=== PATIENT | male | born 1985 | race Hispanic/Latino ===

== ENCOUNTER 2019-02-21 18:06 | Inpatient (IN) | payer OTHER ==
[2019-02-21] MEDS ORDERED: Lidocaine 1% (PF) 30 ML VIAL ONE (18:34)
[2019-02-21 18:41] LABS: Bilirubin Negative (Negative); Blood, Urine Negative (Negative); Clarity Clear (Clear); Glucose, Urine (Dipstick) Normal (Negative); Leukocyte Negative Leu/uL (Negative); Nitrite Negative (Negative); Protein, Urine (Dipstick) Negative (Neg-Trace); Urobilinogen Normal mg/dL (Less than 2)
--- NOTE | 2019-02-21 18:42 | RAD ---
Portable chest: HISTORY: Chest pain COMPARISON: none FINDINGS: Lung mora are clear. Heart and mediastinum appear unremarkable. Vascularity is normal. Visualized osseous structures unremarkable. IMPRESSION: No acute finding
[2019-02-21 18:43] LABS: #Basophils 0.1 thou/uL (0.0-0.2); #Eosinphils 0.1 thou/uL (0.0-0.7); #Lymphocytes 1.6 thou/uL (1.20-3.40); #Monocytes 0.6 thou/uL (0.11-0.59); #Neutrophils 4.6 thou/uL (1.40-6.50); %Basophils 1.1 % (0.0-1.0); %Eosinophils 1.7 % (0.0-10.0); %Lymphocytes 23.3 % (21.0-51.0); %Monocytes 8.3 % (0.0-10.0); %Neutrophils 65.7 % (42.0-75.0); Hemoglobin 13.9 g/dL (14.0-18.0); Mean Corpuscular HGB CONC 35.2 g/dL (32.0-36.0); Mean Corpuscular Hemoglobin 30.6 pg (27.0-31.0); Mean Corpuscular Volume 86.9 fL (78.0-98.0); Platelet Count 200 thou/uL (130-400); RBC Distribution Width 11.7 % (11.5-14.5); Red Blood Cell (RBC) Count 4.53 mill/uL (4.70-6.10)
[2019-02-21 18:50] LABS: Amphetamine Not Detected (NotDetected); Barbiturates Screen Not Detected (NotDetected); Benzodiazepine Screen Not Detected (NotDetected); Cocaine Metabolite Screen Not Detected (NotDetected); Medtox Control Line Valid? VALID (VALID); Medtox Reader # READER 4; Methadone Not Detected (NotDetected); Methamphetamine Not Detected (NotDetected); Opiate Screen Not Detected (NotDetected); Oxycodone Screen Not Detected (NotDetected); Phencyclidine (PCP) Not Detected (NotDetected); THC/Cannabinoid Screen Not Detected (NotDetected); Tricyclic Screen Not Detected (NotDetected)
[2019-02-21 18:58] LABS: ALT (SGPT) 36 U/L (8-55); AST (SGOT) 23 U/L (5-34); Acetaminophen Less than 6.0 mcg/mL (10.0-30.0); Albumin 4.9 g/dL (3.5-5.0); Alcohol Less than 10 mg/dL (Less than 10); Alkaline Phosphatase 81 U/L (40-150); Anion Gap 15 mmol/L (10-20); BUN (Urea Nitrogen) 9 mg/dL (8.9-20.6); Bilirubin, Total 0.4 mg/dL (0.2-1.2); CK (CPK) 183 U/L (30-200); Calc. Creatinine Clearance 0 mL/min (70-130); Calcium 10.2 mg/dL (7.8-10.44); Carbon Dioxide 25 mmol/L (22-29); Chloride 103 mmol/L (98-107); Estimated GFR-MDRD Greater than 90; Globulin 2.9 g/dL (2.4-3.5); Glucose 90 mg/dL (70-105); Lipase 39 U/L (8-78); Potassium 4.1 mmol/L (3.5-5.1); Protein, Total 7.8 g/dL (6.0-8.3); Salicylate Less than 8.0 mg/dL (15.0-30.0); Sodium 139 mmol/L (136-145)
--- NOTE | 2019-02-21 19:36 | PDOC.FPRHP ---
- History of Present Illness Chief Complaint: Chest Pain History of Present Illness: Ishmael Escamilla is a 33 yo incarcerated male with PMH significant for CAD x1 stent in December 2018, HTN, HLD who presented with chest pain. He states that the pain started while he was reading, left sided before moving substernally, and described as pressure. He states that when he got up to go to his bunk his chest pain got slightly worse. He said this lasted about 20 minutes before it resolved after taking nitro. Pt has remained pain free since then. He denies any diaphoresis, shortness of breath, N/V, vision changes. He did experience a headache and generalized weakness along with the chest pain which has resolved. Denies history of DM. Paternal history of fatal NH in 50's. Pt states he had a cardiac stent placed a month ago on January 17. This was done at 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 He states that the chest pain he experienced at that time was much worse than what he felt today. ED Course: Initial trop negative, BNP WNL, Lipase WNL. EKG revealed . CXR revealed no acute findings. - Allergies/Adverse Reactions Allergies Allergy/AdvReac Type Severity Reaction Status Date / Time No Known Allergies Allergy Verified 02/21/19 22:34 - Home Medications Medication Instructions Recorded Confirmed Type Albuterol Sulfate [Proventil Hfa] 2 puff INH PRN PRN 02/21/19 02/21/19 History Aspirin [Adult Low Dose Aspirin EC] 81 mg PO DAILY 02/21/19 02/21/19 History Atorvastatin Calcium 80 mg PO DAILY 02/21/19 02/21/19 History Carvedilol [Coreg] 6.25 mg PO BID 02/21/19 02/21/19 History Clopidogrel Bisulfate [Clopidogrel] 75 mg PO DAILY 02/21/19 02/21/19 History Lisinopril 40 mg PO HS 02/21/19 02/21/19 History Sertraline HCl [Zoloft] 50 mg PO HS 02/21/19 02/21/19 History carBAMazepine 200 mg PO HS 02/21/19 02/21/19 History - History PMHx: Mood disorder unspecified, HTN, HLD, CAD w/ stent placed in 12/2018 PSHx: Pilonidal Cyst FHx: Father from NH at 54 Social: In penitentiary for 12 years, hx of cocaine, marijuana, tobacco use 12 yrs ago - Review of Systems General: denies: fever/chills, weight/appetite/sleep changes Eyes: denies: vision changes ENT: denies: other Respiratory: denies: shortness of breath Cardiovascular: reports: chest pain. denies: palpitation, edema Gastrointestinal: denies: nausea, vomiting Genitourinary: denies: other Skin: denies: rashes, lesions Neurological: reports: weakness (generalized). denies: numbness Psychological: denies: other - Vital signs BP: 151/105, Pulse: 62, Resp: 20, Temp: 97.7 (Oral), Pain: 0, O2 sat: 100 on Room Air, Time: 02/21/2019 21:10. - Physical Exam Constitutional: NAD, awake, alert and oriented, well developed HEENT: EOMI Neck: supple, trachea midline, no JVD Chest: no-tender to palpation, no lesions Heart: RRR, normal S1/S2, no murmurs/rubs/gallops, pulses present, no edema Lungs: CTAB, no respiratory distress, good air movement, no wheezing Abdomen: soft, bowel sounds present Neurological: no focal deficit, CN II-XII intact, normal sensation Skin: no rash/lesions, capillary refill <2 seconds Psychiatric: good judgment and insight FMR H&P: Results - Labs Result Diagrams: 02/21/19 18:29 02/21/19 18:29 Lab results: WBC 7.0 thou/uL (4.8-10.8) 02/21/19 18: Hgb 13.9 g/dL (14.0-18.0) L 02/21/19 18:29 Hct 39.4 % (42.0-52.0) L 02/21/19 18: MCV 86.9 fL (78.0-98.0) 02/21/19 18:29 Plt Count 200 thou/uL (130-400) 02/21/19 18: Neutrophils % 65.7 % (42.0-75.0) 02/21/19 18:29 Sodium 139 mmol/L (136-145) 02/21/19 18: Potassium 4.1 mmol/L (3.5-5.1) 02/21/19 18:29 Chloride 103 mmol/L (98-107) 02/21/19 18:29 Carbon Dioxide 25 mmol/L (22-29) 02/21/19 18:29 BUN 9 mg/dL (8.9-20.6) 02/21/19 18:29 Creatinine 0.87 mg/dL (0.7-1.3) 02/21/19 18:29 Glucose 90 mg/dL (70-105) 02/21/19 18:29 Calcium 10.2 mg/dL (7.8-10.44) 02/21/19 18:29 Total Bilirubin 0.4 mg/dL (0.2-1.2) 02/21/19 18:29 AST 23 U/L (5-34) 02/21/19 18:29 ALT 36 U/L (8-55) 02/21/19 18:29 Alkaline Phosphatase 81 U/L (40-150) 02/21/19 18:29 Creatine Kinase 183 U/L (30-200) 02/21/19 18:29 B-Natriuretic Peptide 60.2 pg/mL (0-100) 02/21/19 18:29 Serum Total Protein 7.8 g/dL (6.0-8.3) 02/21/19 18:29 Albumin 4.9 g/dL (3.5-5.0) 02/21/19 18:29 Lipase 39 U/L (8-78) 02/21/19 18:29 Urine Ketones Negative mg/dL (Negative) 02/21/19 18:29 Urine Blood Negative (Negative) 02/21/19 18:29 Urine Nitrite Negative (Negative) 02/21/19 18:29 Ur Leukocyte Esterase Negative Keyla/uL (Negative) 02/21/19 18:29 - EKG Interpretation EKG: EKG: NSR, T wave inversion in precordial leads, borderline ST elevation in inferior leads and anterior precordial leads - Radiology Interpretation Chest x-ray Status: report reviewed by me (no acute process) FMR H&P: A/P - Problem List (1) Stable angina Current Visit: Yes Status: Acute Code(s): I20.8 - OTHER FORMS OF ANGINA PECTORIS (2) Coronary artery disease Current Visit: Yes Status: Acute Code(s): I25.10 - ATHSCL HEART DISEASE OF [place] CORONARY ARTERY W/O ANG PCTRS (3) HTN (hypertension) Current Visit: Yes Status: Acute Code(s): I10 - ESSENTIAL (PRIMARY) HYPERTENSION (4) Hyperlipidemia Current Visit: Yes Status: Acute Code(s): E78.5 - HYPERLIPIDEMIA, UNSPECIFIED - Plan # Coronary Artery Disease Hx of stent placed in December 2018. Presented with chest pain. Initial trop negative. CXR, BNP, Lipase WNL. - Admit to [facility] per Cardiology for recent EKG changes - trend trops - echo tomorrow - NPO at midnight incase trops bump and needs stress - nitro prn, EKG if CP returns - waiting on records from [facility] of recent cath - Cardiology consulted from ED, will follow up in morning to further assess diagnostic studies. # HTN - hold carvedilol in case plans change and needs stress tomorrow - cnt lisinopril # HLD - cnt simvastatin # Mood disorder - otherwise unspecified - cnt sertraline and carbamazepine Diet: NPO after midnight Fluids: NS @ 110 Code Status: Disposition: Pt admitted to [facility] due to recent hx of stent placement, chest pain on admission which resolved with nitro, and EKG changes. FMR H&P: Upper Level - Pertinent history 33 year old male presents from [facility]iary with sudden onset crushing chest pain which started at 16:00 while he was in sitting in a class at the rehab/ correction. Patient states he walked to his bunk to lay down because he wasn't feeling well. The pain was worse with walking. It got so bad that he asked his bunk mate to call for the doctor. He denies diaphoresis, N/V, shortness of breath. Patient states chest pain started in left side of chest and migrated toward the middle of his chest. He states it feels similar to his last NH. Patient states pain was relieved with 3 nitro and ASA. Patient had drug eluting stent placed in LAD on 01/17/2019 in [place]. His has been on dual antiplatelet therapy since that time. - Pertinent findings General: Alert and oriented x3. NAD. HEENT: MMM. EOMI. Card: RRR. No murmurs. Resp: CTA-BL. No acute respiratory distress. Abdomen: Soft, non-tender. Ext: No LE edema. Pulses present. Neuro: No focal deficits appreciated. Chest: Non-tender to palpation. - Plan Date/Time: 02/21/191933 I, Angie Cueva , have evaluated this patient and agree with findings/plan as outlined by manager of internal resident. Pertinent changes/additions are listed here. 1. Typical chest pain with concern for ACS - Stents placed 01/17/2019 (LAD) at [facility] - Patient has been on dual antiplatelet therapy since d/c from hospital for drug eluting stents - EKG changes (ST elevations III, AVF, V1, V2) - Dr. Parks notified down in ED. He has seen EKG's and was made aware of patient. Advised to admit for "rule out" with troponins and echo. No plan for cardiac cath or stress test at this time per Cardiology. - Trend troponins - Pending records from [facility] where patient had past procedure done. SAUL signed and [facility] has been made aware we are awaiting those records. - Will proceed with risk stratification labs pending records from outside facility - Continue dual antiplatelet therapy, high intensity statin, BB (will hold pending possibility for cath tomorrow) - NPO at midnight. Per Kasey no plan for stress or cath, but will make NPO while trending labs/ in case patient requires intervention. - No therapeutic anticoagulation necessary per Cardiology - Will monitor on IMCU given EKG changes and concern for acute event. - Will repeat EKG once patient transitions to floor and if patient had any new chest pain - Nitro for chest pain PRN - Continue VAN-I - Echo pending 2. HLD - Continue high intensity statin 3. Mood disorder, not otherwise specified - Continue home medication 4. HTN - Continue home medications DVT PPX: Lovenox Code Status: Full Dispo: Admit to IMCU for close observation. Anticipate LOS >48 hours. Addendum - Attending - Attending Attestation Date/Time: 02/21/192052 I personally evaluated the patient and discussed the management with resident team I agree with the History, Examination, Assessment and Plan documented above with any addition or exceptions noted below. 33 yo male with hx of HTN, HLD, former tobacco use, significant family hx of CAD , previous drug use, and CAD s/p recent LAD stent presents to ER for evaluation of chest pain. Patient reports this afternoon was in group and noticed chest pain. Reported similar to last chest pain that brought him a stent. Per patient he said, " I had a heart attack today." Describes pain as pressure-type. States "like something sitting on my chest." Started at around 1640. Attempted to rest in his bunk but pain did not resolve. Slight worsening with ambulation. Was seen by medical staff. Provided nitro and ASA. Pain then improved. Was brought to ER for evaluation. Denies associated symptoms. Vitals, imaging, labs, and EKG reviewed. Agree with documented PE. ST elevation noted in inferior leads with t wave inversions in lateral. V1 to V4 ST changes noted. Cards called from ER. ST protocol activated but patient asymptomatic with negative enzyme. Cards reviewed imaging and EKGs. At this time feels related to repolarization changes for recent stent/ischemia. Will continue to monitor closely throughout the night. Trend labs and EKGs. Significant risk for ischemia. Records requested from [facility] in [place]. Maximize medication to minimize risk factors. Continue high dose statin. ASA provided. Continue BB. Higgins
[2019-02-21] MEDS ORDERED: PROVENTIL INHALER 6.7 G (200 INHALATIONS) INH PRN (21:24)
[2019-02-21] MEDS ORDERED: Acetaminophen 325 MG TAB PO PRN (21:56)
[2019-02-21] MEDS ORDERED: Famotidine 20 MG TAB PO PRN (21:56)
[2019-02-21] MEDS ORDERED: Nitroglycerin 0.4 MG TAB (25 Tab Bottle) PO PRN (21:56)
[2019-02-21 22:04] LABS: Troponin I Less than 0.010 ng/mL (< 0.028)
[2019-02-21 22:11] LABS: Phosphorus 4.5 mg/dL (2.3-4.7)
[2019-02-21] MEDS: Sodium Chloride 0.9% 1,000 ML IV SCH (22:21)
[2019-02-22 01:19] LABS: Troponin I 0.014 ng/mL (< 0.028)
--- NOTE | 2019-02-22 05:36 | PDOC.FM ---
- Subjective Subjective: Mr. Escamilla is a 33 y/o prisoner from the [facility] with a history of CAD treated with stent placement in January 2019, HTN, HLD, and a strong FHx of CAD, who presents to the hospital following an episode of crushing left-sided chest pain that eventually migrated to the substernal area that was worse with activity and relieved with rest and 3 doses of nitroglycerin. The patient stated that his pain had resolved by the time that he had arrived to the ED. EKG performed in the ED revealed normal sinus rhythm with T Wave inversion in the precordial leads and borderline ST elevation in the inferior leads. Due to his recent history of CAD and noticeable change from his last EKG prior to his stent placement, it was difficult for staff to determine the acuity of these concerning EKG changes. Lab values were unremarkable, specifically with regard to BNP (60) and Troponins (<0.01 x 2). The patient was admitted to the IMCU, per Cardiology, and is expected to receive an echo later this morning. He appears to be resting comfortably and is in no acute distress, and denies any acute or recurrent chest pain, SOB, N/V/D, changes in weight, fevers, chills , or night sweats. - Objective Vital Signs & Weight: Vital Signs (12 hours) Temp Pulse Resp BP Pulse Ox 02/22/19 04:00 97.5 F L 02/21/19 23:56 98.4 F 02/21/19 21:41 98 02/21/19 21:30 98.2 F 73 20 174/109 H 97 Weight Weight 118.6 kg Result Diagrams: 02/21/19 18:29 02/21/19 18:29 Phys Exam - Physical Examination Constitutional: NAD HEENT: moist MMs, oral pharynx no lesions Neck: supple, full ROM Respiratory: no wheezing, no rales, no rhonchi, clear to auscultation bilateral Cardiovascular: RRR, no significant murmur, no rub Gastrointestinal: soft, non-tender, no distention Musculoskeletal: no edema, pulses present Neurological: normal sensation, moves all 4 limbs Psychiatric: normal affect, A&O x 3 Dx/Plan (1) Mood disorder Code(s): F39 - UNSPECIFIED MOOD [AFFECTIVE] DISORDER Status: Acute (2) Coronary artery disease Code(s): I25.10 - ATHSCL HEART DISEASE OF [place] CORONARY ARTERY W/O ANG PCTRS Status: Acute (3) HTN (hypertension) Code(s): I10 - ESSENTIAL (PRIMARY) HYPERTENSION Status: Acute (4) Hyperlipidemia Code(s): E78.5 - HYPERLIPIDEMIA, UNSPECIFIED Status: Acute (5) Stable angina Code(s): I20.8 - OTHER FORMS OF ANGINA PECTORIS Status: Acute - Plan Plan: 1. Stable Angina vs. Unstable Angina -Crushing, sub-sternal chest pain that is worse with exercise and better with rest and nitroglycerin -Concerning EKG changes (T Wave inversion in precordial leads with equivocal ST elevation in inferior leads) -BNP: 60 (Low) -Troponins: <0.01 x2 -AST/ALT: 23/36 -Lipase: 39 -CXR: No Acute Findings -Nitroglycerin if chest pain reoccurs -Dr. Parks (Cardiology) consulted, requested echo this AM and no anticoagulation 2. CAD -Continue Aspirin 81 mg PO daily -Continue Clopidogrel 75 mg PO daily 3. HTN -Well controlled -Continue Lisinopril 40 mg PO daily 4. HLD -Continue Atorvastatin 80 mg PO daily 5. Mood Disorder (Unspecified) -Continue Carbamezapine 80 mg PO daily -Continue Sertraline 150 mg PO daily -Monitor for concerning symptoms Dispo: Hold on IMCU per Cardiology request, await echo results, continue to monitor for pain reoccurence, Troponins, and consider additional EKG this AM Addendum - Attending - Attending Attestation Date/Time: 02/22/19 2200 I personally evaluated the patient and discussed the management with Dr. Schofield and team. I agree with the History, Examination, Assessment and Plan documented above with any addition or exceptions noted below.
[2019-02-22] MEDS: Sodium Chloride 0.9% 1,000 ML IV SCH (06:39)
--- NOTE | 2019-02-22 10:26 | CON ---
DATE OF CONSULTATION: 02/22/2019 ADMITTING PHYSICIAN: [facility] CONSULTING PHYSICIAN: Sher Jackson MD, Cardiology. REASON FOR CONSULTATION: Acute chest pain. HISTORY OF PRESENT ILLNESS: Mr. Escamilla is a 33-year-old male with a past medical history of coronary artery disease, who recently underwent PCI in December 2018 at another facility. He gives a history of hypertension and hyperlipidemia also. He denies any previous TN. He presented to the emergency room last night with complaint of chest pain. The patient is incarcerated and states that he was in group session around 4:30 yesterday afternoon when he developed chest pain. He thought it would go away, but he did not seek medical care until approximately 6:30. At the time, the medic gave him 3 nitroglycerins which relieved the pain. He was brought to the emergency room, where EKG showed sinus rhythm with biphasic anterior EKG changes along with [address]-segment elevation in leads III and AVF, possibly consistent with repolarization changes. Cardiac enzymes were negative. He was pain-free at the time of presentation, admitted to [facility] for overnight monitoring. He currently denies any pain, and said he has had no pain overnight. Repeat cardiac enzymes have been negative. He denies any shortness of breath, dyspnea on exertion, dizziness, or lightheadedness. He denies any nausea or diaphoresis. He just complains of fatigue. CURRENT MEDICATIONS: 1. Tylenol p.r.n. 2. Proventil inhaler p.r.n. 3. Aspirin 81 mg daily. 4. Lipitor 80 mg at bedtime. 5. Tegretol 400 mg at bedtime. 6. Plavix 75 mg daily. 7. Pepcid 20 mg b.i.d. 8. Zestril 40 mg at bedtime. 9. Nitrostat p.r.n. 10. Zoloft 150 mg at bedtime. ALLERGIES: NO KNOWN DRUG ALLERGIES. PAST MEDICAL HISTORY: 1. Coronary artery disease. 2. Hypertension. 3. Hyperlipidemia. 4. Anxiety and depression. PAST SURGICAL HISTORY: 1. Pilonidal cyst removal. 2. Left heart catheterization with PCI of unknown vessel in December 2018 at [facility]. FAMILY HISTORY: His father had coronary artery disease and congestive heart failure. He recently at the age of 55. SOCIAL HISTORY: The patient is a former smoker. He also has a history of substance abuse including cocaine. He is currently incarcerated. REVIEW OF SYSTEMS: As mentioned above, but otherwise 12-point review of systems discussed with the patient is negative, except for HPI. PHYSICAL EXAMINATION: GENERAL: This is a pleasant young male, who is in no acute distress. He is lying in bed, resting comfortably, conversing easily. NEUROLOGIC: He is alert and oriented x3. VITAL SIGNS: Temperature is 97.3, respiratory rate is 14, pulse is 60, blood pressure is 108/56. I and O is -176 mL. Weight is 261 pounds. HEENT: Head is atraumatic and normocephalic. Mucous membranes are moist. NECK: Supple. No JVD or bruits noted. CHEST: Clear bilaterally. CARDIOVASCULAR: Regular rate and rhythm. Normal S1, S2. No murmurs, rubs, or gallops. ABDOMEN: Soft, nontender to palpation, nondistended. EXTREMITIES: No clubbing, cyanosis, or edema. SKIN: Warm and dry. PSYCHIATRIC: Mood and affect are appropriate. MUSCULOSKELETAL: Not assessed as the patient is in full restraints. IMAGING STUDIES: Telemetry shows sinus rhythm. Otherwise, 12-lead EKG mentioned above. LABORATORY DATA: BMP is within normal limits. CBC shows him to be mildly anemic with hemoglobin 13.9, hematocrit 39.4. Cardiac enzymes negative x3. BNP was normal. UA was negative. Tox screen was negative. IMPRESSION: 1. Acute chest pain. 2. Recent percutaneous coronary intervention. 3. History of coronary artery disease. 4. Hypertension. 5. Hyperlipidemia. 6. Former smoker. PLAN: At this time, the patient is stable. His EKG is abnormal, but I do not have a previous EKG to compare to. Given the fact that he is pain-free and cardiac enzymes are negative, I would proceed with noninvasive stress testing to rule out ischemia. If negative, he can be discharged back to the facility with long-acting nitrates or beta-blockers. There is no documented history of bradycardia for his history. Currently, he is stable, understands and agrees to plan of care. Job ID: [id number]
--- NOTE | 2019-02-22 14:59 | NM ---
EXAM: Nuclear medicine cardiac perfusion examination with ejection fraction HISTORY: Chest pain TECHNIQUE: Rest images: 9.1 mCi technetium 99m sestamibi Stress images: 27.8 mCi of technetium 9M sestamibi; Lexiscan COMPARISON: None FINDINGS: Tomographic images: No fixed or reversible perfusion defects. Gated images: Normal wall motion and ejection fraction of 47%. EDV: 165 mL LHR: 0.3 TID: 1.07 IMPRESSION: No evidence of ischemia
--- NOTE | 2019-02-22 15:08 | CON ---
DATE OF CONSULTATION: 02/22/2019 SERVICE: Pulmonary Medicine. REASON FOR CONSULTATION: ICU patient. HISTORY OF PRESENT ILLNESS: The patient is a 33-year-old male with past medical history significant for coronary artery disease, who presented to the hospital with chest discomfort. It occurred when he was at rest. It was substernal, radiated to left side. He described it as a pressure. Ultimately, he was given some nitroglycerin and the pain resolved. He denies any current fevers, chills, nausea, vomiting, or diarrhea. Otherwise, he is in his usual state of health. PAST MEDICAL HISTORY: 1. Major depressive disorder. 2. Hypertension. 3. Dyslipidemia. 4. Coronary artery disease. 5. Morbid obesity. PAST SURGICAL HISTORY: Pilonidal cyst reduction. FAMILY HISTORY: Noncontributory. SOCIAL HISTORY: He has been in [facility] over [facility] years. He has a remote history of cocaine use, marijuana use, but does not use currently. He stopped using tobacco products 12 years ago. Before that, he had less than 10 pack-year history of smoking. He has no exposure to chemicals, dust, asbestos, or tuberculosis. ALLERGIES: NO KNOWN DRUG ALLERGIES. MEDICATIONS: List of his inpatient medications was reviewed. No specific updates were made at this time. REVIEW OF SYSTEMS: General, head, ears, eyes, nose, throat, cardiovascular, respiratory, GI, , musculoskeletal, neurologic, and skin are negative except as mentioned in the HPI. PHYSICAL EXAMINATION: VITAL SIGNS: Afebrile. Pulse 61, blood pressure 118/80, respirations 17, and saturation 98% on room air. GENERAL: The patient is awake and alert, in no apparent distress. LUNGS: Decent air entry. There is no prolonged expiratory phase, wheezing, rhonchi, or crackles present. HEART: Normal rate, regular. ABDOMEN: Soft, nontender, nondistended. Bowel sounds are positive. MUSCULOSKELETAL: No cyanosis or clubbing. No pitting in the bilateral lower extremities. NEUROLOGIC: Grossly nonfocal. DIAGNOSTIC STUDIES: IMAGING STUDIES: EKG demonstrates some ST elevation in 2 continuous leads, this is about 1 mm. LABORATORY RESULTS: WBC 7.0, hemoglobin 13.9, platelets 200,000. Comprehensive metabolic profile, troponins x3, and BNP are all unremarkable. Magnesium and phosphorous fall within the normal limits. Toxicology screen is negative. Urinalysis is unremarkable. ASSESSMENT: 1. Chest discomfort. 2. Coronary artery disease. DISCUSSION AND PLAN: The patient is stable for transition out of the ICU to the telemetry unit. We are awaiting the results of his stress test. Pulmonary/ Critical Care will continue to follow along while the patient remains inhouse. 70 minutes have been devoted to this patient in various activities. I personally reviewed all imaging studies and laboratory data noted within this document. For fifty percent of this time, I was interacting with the patient at the bedside or coordinating care with the care team. For the remainder of the time I was immediately available to the patient in the hospital unit. Job ID: [id number] [id number]
[2019-02-22] MEDS: Atorvastatin Calcium 40 MG TAB PO SCH (15:27)
[2019-02-22] MEDS: Clopidogrel Bisulfate 75 MG TAB PO SCH (15:28)
[2019-02-22] MEDS: Aspirin 81 mg Enteric Coated Tablet PO SCH (15:28)
[2019-02-22] MEDS ORDERED: Regadenoson 0.4 MG/5 ML SYRINGE ONE (15:30)
--- NOTE | 2019-02-22 20:23 | CON ---
DATE OF CONSULTATION: REASON FOR CONSULTATION: Chest pain. Please see Natalie Krause's full consultation for details. Mr. Escamilla has recent episode of chest pain. He states his pain was not as bad as previous pain. He states he had an [place] last month. He underwent successful stent placement. He is currently pain free. PHYSICAL EXAMINATION: GENERAL: The patient is a pleasant 33-year-old, who is in no acute distress. The patient appears their stated age. VITAL SIGNS: Blood pressure 136/78, pulse 71, temperature afebrile. NEUROLOGIC: The patient is alert and oriented x3 with no focal neurologic deficits. HEENT: Sclerae without icterus. Mouth has moist mucous membranes with normal pallor. NECK: No JVD. Carotid upstroke brisk. No bruits bilaterally. LUNGS: Clear to auscultation with unlabored respirations. BACK: No scoliosis or kyphosis. CARDIAC: Regular rate and rhythm with normal S1 and S2. No S3 or S4 noted. No significant rubs, murmurs, thrills, or gallops noted throughout the precordium. PMI is not displaced. There is no parasternal heave. ABDOMEN: Soft, nontender, nondistended. No peritoneal signs present. No hepatosplenomegaly. No abnormal striae. EXTREMITIES: 2+ femoral and 2+ dorsalis pedis pulses. No cyanosis, clubbing, or edema. SKIN: No gross abnormalities. LABORATORY DATA: CK, troponin negative. Stress and rest myocardial perfusion study with no ischemia present. LVEF 47%. IMPRESSION: 1. Chest pain. 2. Coronary artery disease. 3. Status post myocardial infarction. RECOMMENDATIONS: Mr. Escamilla' symptoms are not similar to his previous symptoms. He recently had a stent placement. This was subacute thrombosis. He would likely to have an ST-segment elevation. His stress study was negative for ischemia. At this point, we will continue current medical therapy. We would recommend beta-maria luz therapy, statin, aspirin, Plavix. It would be okay from my standpoint to discharge back to the residential with further recommendations per his primary high school art teacher. Job ID: [id number]
[2019-02-22 20:39] VITALS: BP 132/76
[2019-02-22] MEDS ORDERED: carBAMazepine 200 MG TAB PO SCH (21:00)
[2019-02-22] MEDS ORDERED: Lisinopril 20 MG TAB PO SCH (21:00)
--- NOTE | 2019-02-23 05:46 | PDOC.FM ---
- Subjective Subjective: Mr. Escamilla was resting comfortably at the time of evaluation. He had no complaints at the time, specifically to include chest pain, SOB, N/V/D, fevers, chills, or night sweats. Nursing staff did not report any overnight events. His NM Stress Test yesterday revealed no obvious defects, and a stable Ejection Fraction of 47%. Cardiology recommended DC back to detention with close F/U with his established supervisor travel information center. - Objective Vital Signs & Weight: Vital Signs (12 hours) Temp BP Pulse Ox 02/23/19 05:00 97.9 F 02/23/19 00:00 98.3 F 02/22/19 20:36 132/76 02/22/19 20:00 98 02/22/19 19:33 99.0 F Weight Weight 118.6 kg Most Recent Monitor Data Heart Rate from ECG 55 NIBP 115/74 NIBP BP-Mean 87 Respiration from ECG 18 SpO2 100 I&O: 02/21/19 02/22/19 02/23/19 06:59 06:59 06:59 Intake Total 1124 1920 Output Total 1300 1075 Balance -176 845 Result Diagrams: 02/21/19 18:29 02/21/19 18:29 Phys Exam - Physical Examination Constitutional: NAD HEENT: moist MMs, sclera anicteric, oral pharynx no lesions Neck: no nodes, no JVD, supple, full ROM Respiratory: no wheezing, no rales, no rhonchi Cardiovascular: RRR, no significant murmur, no rub Gastrointestinal: soft, non-tender, no distention Musculoskeletal: pulses present Neurological: moves all 4 limbs Lymphatic: no nodes Psychiatric: normal affect, A&O x 3 Dx/Plan (1) Mood disorder Code(s): F39 - UNSPECIFIED MOOD [AFFECTIVE] DISORDER Status: Acute (2) Coronary artery disease Code(s): I25.10 - ATHSCL HEART DISEASE OF [place] CORONARY ARTERY W/O ANG PCTRS Status: Acute (3) HTN (hypertension) Code(s): I10 - ESSENTIAL (PRIMARY) HYPERTENSION Status: Acute (4) Hyperlipidemia Code(s): E78.5 - HYPERLIPIDEMIA, UNSPECIFIED Status: Acute (5) Stable angina Code(s): I20.8 - OTHER FORMS OF ANGINA PECTORIS Status: Acute - Plan Plan: 1. Chest Pain, likely 2/2 to Stable Angina -Crushing, sub-sternal chest pain that is worse with exercise and better with rest and nitroglycerin -Concerning EKG changes (T Wave inversion in precordial leads with equivocal ST elevation in inferior leads) -BNP: 60 (Low) -Troponins: <0.01 x3 -AST/ALT: 23/36 -Lipase: 39 -CXR: No Acute Findings -NM Stress Test revealed no reversible or irreversible defects, Ejection Fraction of 47% -Echo: Pending -Cardiology recommended DC back to detention with close F/U with established Agriscience Instructor 2. CAD -Continue Aspirin 81 mg PO daily -Continue Clopidogrel 75 mg PO daily 3. HTN -Well controlled -Continue Lisinopril 40 mg PO daily 4. HLD -Continue Atorvastatin 80 mg PO daily 5. Mood Disorder (Unspecified) -Tolerating medication well -Continue Carbamezapine 80 mg PO daily -Continue Sertraline 150 mg PO daily -Monitor for concerning symptoms Dispo: Prepare for DC back to detention with close F/U with established Agriscience Instructor. Addendum - Attending - Attending Attestation Date/Time: 02/23/19 1232 I personally evaluated the patient and discussed the management with Dr. Schofield. I agree with the History, Examination, Assessment and Plan documented above with any addition or exceptions noted below.
[2019-02-23 06:05] VITALS: BMI 36.6
[2019-02-23] MEDS: Atorvastatin Calcium 40 MG TAB PO SCH (08:18)
[2019-02-23] MEDS: Aspirin 81 mg Enteric Coated Tablet PO SCH (08:19)
[2019-02-23] MEDS: Clopidogrel Bisulfate 75 MG TAB PO SCH (08:19)
--- NOTE | 2019-02-23 11:29 | PRG ---
DATE OF SERVICE: 02/23/2019 SERVICE: Pulmonary Medicine. INTERVAL HISTORY: The patient is doing fine from respiratory standpoint. Breathing comfortably. No additional episodes of chest pain have occurred. He denies any nausea, vomiting, fevers, or chills. His appetite is good. He is very respectful. PHYSICAL EXAMINATION: VITAL SIGNS: Afebrile, pulse 65, blood pressure 128/82, respirations 17, and saturation 100% on room air. GENERAL: The patient is awake and alert, in no apparent distress. LUNGS: Decent air entry. No prolonged expiratory phase or wheezing is appreciated. HEART: Normal rate and regular. ABDOMEN: Soft, nontender, and nondistended. Bowel sounds are positive. MUSCULOSKELETAL: No cyanosis or clubbing. No pitting in the bilateral lower extremities. NEUROLOGIC: Grossly nonfocal. IMAGING STUDIES: Stress test in nuclear medicine was negative for any inducible ischemia. His ejection fraction was minimally reduced at 47%. ASSESSMENT: 1. Chest pain, resolved. 2. History of coronary artery disease. 3. Abnormal EKG with minimal elevation in 2 leads. DISCUSSION AND PLAN: The patient is stable for transition to the telemetry unit. Either way, he has no further requirements for inpatient Pulmonary/Critical Care opinion and I will sign off. Please call with additional questions or concerns through time. Job ID: [id number]
[2019-02-23 11:57] VITALS: TEMP 99.3
--- NOTE | 2019-02-24 22:46 | DIS ---
DATE OF ADMISSION: 02/21/2019 DATE OF DISCHARGE: 02/23/2019 CONSULTS: Sher Jackson MD, Cardiology. PRIMARY DIAGNOSIS: Stable Angina. SECONDARY DIAGNOSES: 1. Coronary artery disease. 2. Hypertension. 3. Hyperlipidemia. 4. Unspecified mood disorder. DISCHARGE MEDICATIONS: Nitroglycerin 0.4 mg p.o. q.5 minutes p.r.n. DISCONTINUED MEDICATIONS: 1. Carvedilol 6.25 mg p.o. b.i.d. 2. Heparin 1000 mL. 3. Albuterol sulfate 2 puffs q.4 hours p.r.n. 4. Aspirin 81 mg p.o. daily. 5. Atorvastatin calcium 80 mg p.o. daily. 6. Clopidogrel bisulfate 75 mg p.o. daily. 7. Regadenoson, trade name Lexiscan 0.4 mg. 8. Carbamezapine 400 mg p.o. at bedtime. 9. Lisinopril 40 mg p.o. at bedtime. 10. Sertraline hydrochloride 150 mg p.o. at bedtime. HISTORY OF PRESENT ILLNESS/HOSPITAL COURSE: Mr. Escamilla is a pleasant 33-year-old prisoner with a past medical history significant for coronary artery disease that was treated via stent placement 1 month ago as well as hypertension and hyperlipidemia, who presented to the ED on 02/21/2019 with a chief complaint of chest pain. The patient states that the pain started while he was reading in his cell. It was left-sided and then became substernal in nature. It felt like pressure and was not relieved with 3 tabs of sublingual nitroglycerin. He states that when he got up to go to his bunk bed, the chest pain got worse and lasted approximately 20 minutes , effectively resolving by the time he arrived to the ED. The patient remained pain free during his hospital course. He denied any diaphoresis, shortness of breath, nausea, vomiting, or vision changes, but he did endorse headache and generalized weakness, all of which had resolved. The patient received a nuclear stress test, which indicated that there were no fixed or reversible perfusion defects, with normal wall motion and an ejection fraction of 47%. He also received an echocardiogram, which was admittedly poor due to the patient's immobility as he was in restraints in his bed. This procedure displayed an ejection fraction that was slightly higher, visualized at 65% with a normal size right ventricle cavity, a mildly dilated right left atrium, normal right atrium, trace mitral regurgitation, a structurally normal aortic valve and trace tricuspid regurgitation. The patient was cleared by cardiology for discharge. At the time of discharge, he had a white blood cell count of 7, hemoglobin of 13.9, hematocrit of 39.4, platelet count of 200. A urine drug screen was essentially negative for drugs of abuse. Creatinine function of 0.87, troponins were less than 0.01 on 3 separate occasions, BNP was 60.2 and lipase was 39. DISPOSITION: Stable. DISCHARGE INSTRUCTIONS: 1. Location: Intermediate. 2. Diet: Heart healthy. 3. Activity: Ad emperatriz as tolerated. 4. Followup: The patient was prescribed a 1-month supply of nitroglycerin and was advised to follow up with his previously established dog daycare provider once he returned to [facility]. Job ID: [id number] MTDD
== END 2019-02-23 14:25 | DRG 282 ==
LOC: ERS 18:06 → EEVIPCON 18:06 → IMCU/EMU 19:20
PROVIDERS: ADMIT Student in an Organized Health Care Education/Training Program; ATTEND Student in an Organized Health Care Education/Training Program
DX: I25.119 Atherosclerotic heart disease of native coronary artery with unspecified angina pectoris (principal); I21.19 ST elevation (STEMI) myocardial infarction involving other coronary artery of inferior wall; F39 Unspecified mood [affective] disorder; I10 Essential (primary) hypertension; E78.5 Hyperlipidemia, unspecified; F32.9 Major depressive disorder, single episode, unspecified; E66.01 Morbid (severe) obesity due to excess calories; F41.9 Anxiety disorder, unspecified; Z68.36 Body mass index [BMI] 36.0-36.9, adult; Z87.891 Personal history of nicotine dependence
CPT/HCPCS: 36415; 71045; 78452; 80053; 80306; 80307; 81003; 82550; 82553; 83690; 83735; 83880; 84100; 84484; 85025; 93005; 93010; 93017; 93306; A9500; J1644; J2001; J2785

== ENCOUNTER 2019-04-18 08:27 | Observation (INO) | payer OTHER ==
--- NOTE | 2019-04-18 09:21 | RAD ---
Chest AP view INDICATION: Chest pain COMPARISON: February 21, 2019 FINDINGS: Lungs:The lungs are clear Cardiac silhouette:The cardiomediastinal silhouette appears within normal limits. Pulmonary vasculature:Normal Pleural spaces:No pleural effusion or pneumothorax is demonstrated. Upper abdomen:No abnormality seen. Osseous structures: No acute osseous abnormality. Additional findings:None. IMPRESSION: No acute cardiopulmonary abnormality.
[2019-04-18 09:37] LABS: #Eosinphils 0.1 thou/uL (0.0-0.7); #Lymphocytes 1.3 thou/uL (1.20-3.40); #Monocytes 0.5 thou/uL (0.11-0.59); %Basophils 0.9 % (0.0-1.0); %Eosinophils 2.4 % (0.0-10.0); %Lymphocytes 26.8 % (21.0-51.0); %Monocytes 10.6 % (0.0-10.0); %Neutrophils 59.3 % (42.0-75.0); Hemoglobin 13.5 g/dL (14.0-18.0); Mean Corpuscular Hemoglobin 31.2 pg (27.0-31.0); Mean Corpuscular Volume 86.7 fL (78.0-98.0); Platelet Count 189 thou/uL (130-400); RBC Distribution Width 11.7 % (11.5-14.5); Red Blood Cell (RBC) Count 4.33 mill/uL (4.70-6.10)
[2019-04-18 10:08] LABS: AST (SGOT) 35 U/L (5-34); Albumin 4.8 g/dL (3.5-5.0); Alkaline Phosphatase 76 U/L (40-150); Anion Gap 14 mmol/L (10-20); BUN (Urea Nitrogen) 12 mg/dL (8.9-20.6); Bilirubin, Total 0.5 mg/dL (0.2-1.2); Calc. Creatinine Clearance 0 mL/min (70-130); Calcium 9.6 mg/dL (7.8-10.44); Carbon Dioxide 24 mmol/L (22-29); Chloride 106 mmol/L (98-107); Estimated GFR-MDRD Greater than 90; Globulin 2.4 g/dL (2.4-3.5); Glucose 107 mg/dL (70-105); Potassium 4.3 mmol/L (3.5-5.1); Protein, Total 7.2 g/dL (6.0-8.3); Sodium 140 mmol/L (136-145)
[2019-04-18 10:10] LABS: ALT (SGPT) 60 U/L (8-55); CK (CPK) 203 U/L (30-200); Lipase 25 U/L (8-78)
[2019-04-18] MEDS ORDERED: Aspirin 81 mg Enteric Coated Tablet ONE (12:30)
[2019-04-18] MEDS ORDERED: Nitroglycerin 2% Ointment 1 INCH/1 GM Packet ONE (12:30)
--- NOTE | 2019-04-18 13:22 | PDOC.HHP ---
Hospitalist HPI - History of Present Illness chest pain History of Present Illness: This is a 33 year old male with past medical history of CAD s/p PCI in 12/2018, hypertension, hyperlipidemia who presented to the ER with chest pain. The patient states that he was sitting at his writing desk when his chest pain started at approximately 4:00 pm yesterday. He stated the pain was a stabbing pain and radiated to both of his arm, left > right. He also felt lightheaded and short of breath and was slightly sweaty. The patient states he took two nitroglycerin and the pain resolved. The pain lasted for approximately fifteen minutes. He denied fevers, chills or cough. He came to the ER for further evaluation. The patient did have a recent admission in January for a similar problem, he had a normal stress test at the time and was discharged back to the senior care. ECHO that showed an EF of 60-65%, mildly dilated left atrium. The patient states that he has been adhering to a low salt diet which keeps his blood pressure controlled to 140's to 150's, otherwise it can sometimes go up to 160 and his legs will swell. 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 He reports some back pain but no recent trauma. ED Course: Vitals showed BP of 150 which later improved to 120. The patient states he has not taken his blood pressure medication today. The patient had an EKG which showed sinus bradycardia and sinus arrythmia. Chest X ray showed no acute disease. First troponin was normal. Labs remarkable for some anemia Hospitalist ROS - Review of Systems Constitutional: denies: fever, chills Eyes: denies: vision change, other ENT: denies: ear pain, nose discharge, throat pain Respiratory: denies: cough, dry Cardiovascular: denies: chest pain, palpitations Gastrointestinal: reports: nausea, other (abdominal bloating). denies: vomiting Genitourinary: reports: incontinence Musculoskeletal: reports: arm pain, hand pain, foot pain Skin: denies: rash, lesions Neurological: reports: numbness (in legs) Hospitalist History - Past Medical History Cardiac: reports: CAD Pulmonary: reports: no pertinent history JAMB CUTTER: reports: Peripheral neuropathy Gastrointestinal: reports: no pertinent history Heme/Onc: reports: no pertinent history Hepatobiliary: reports: no pertinent history Psych: reports: Other (mood disorder) Infectious Disease: reports: no pertinent history ENT: reports: no pertinent history Renal/: reports: no pertinent history Endocrine: reports: no pertinent history Dermatology: reports: no pertinent history - Past Surgical History Past Surgical History: reports: Other (pilonidal cyst removal) - Family History Family History: reports: cardiac disorder, diabetes mellitus, hypertension - Social History Smoking Status: Former smoker Drugs: reports: cocaine Living Situation: Other (inmate) Other Social History: THe patient has been incarcerated since the age of 9. The patient did cocaine occasionally when he was 9, but smoked marijuana and tobacco heavily as a child for a few years. - Exam General Appearance: NAD (2+ radial pulses, 1+ dorsal pedis on the left, 2+ on the right), awake alert Eye: PERRL, anicteric sclera ENT: normocephalic atraumatic Neck: negative: no JVD Heart: RRR, no murmur, no gallops Respiratory: CTAB, no wheezes, no rales Gastrointestinal: soft (mild RUQ and LUQ tenderness) Extremities: no cyanosis, no clubbing, no edema Extremities - other findings: bilateral thenar eminence tenderness/swelling, bilateral heel tenderness Neurological: cranial nerve grossly intact, normal sensation to touch, no weakness, no focal deficits, no new deficit Neurological - other findings: Reflexes 2+ biceps/brachioradialis, 1+ in knees bilaterally, nega Babinski Musculoskeletal: normal tone, normal strength Musculoskeletal - other findings: Negative Phalens sign and Tinel's sign Psychiatric: normal affect, normal behavior, A&O x 3 Hospitalist Results - Labs Result Diagrams: 04/18/19 09:24 04/18/19 09:24 Lab results: WBC 5.0 thou/uL (4.8-10.8) 04/18/19 09:24 Hgb 13.5 g/dL (14.0-18.0) L 04/18/19 09:24 Hct 37.5 % (42.0-52.0) L 04/18/19 09:24 MCV 86.7 fL (78.0-98.0) 04/18/19 09:24 Plt Count 189 thou/uL (130-400) 04/18/19 09:24 Neutrophils % 59.3 % (42.0-75.0) 04/18/19 09:24 Sodium 140 mmol/L (136-145) 04/18/19 09:24 Potassium 4.3 mmol/L (3.5-5.1) 04/18/19 09:24 Chloride 106 mmol/L (98-107) 04/18/19 09:24 Carbon Dioxide 24 mmol/L (22-29) 04/18/19 09:24 BUN 12 mg/dL (8.9-20.6) 04/18/19 09:24 Creatinine 0.88 mg/dL (0.7-1.3) 04/18/19 09:24 Glucose 107 mg/dL (70-105) H 04/18/19 09:24 Calcium 9.6 mg/dL (7.8-10.44) 04/18/19 09:24 Total Bilirubin 0.5 mg/dL (0.2-1.2) 04/18/19 09:24 AST 35 U/L (5-34) H 04/18/19 09:24 ALT 60 U/L (8-55) H 04/18/19 09:24 Alkaline Phosphatase 76 U/L (40-150) 04/18/19 09:24 Creatine Kinase 203 U/L (30-200) H 04/18/19 09:24 Troponin I Less than 0.010 ng/mL (< 0.028) 04/18/19 09:24 B-Natriuretic Peptide 19.3 pg/mL (0-100) 04/18/19 09:24 Serum Total Protein 7.2 g/dL (6.0-8.3) 04/18/19 09:24 Albumin 4.8 g/dL (3.5-5.0) 04/18/19 09:24 Lipase 25 U/L (8-78) 04/18/19 09:24 Hospitalist H&P A/P - Plan Plan: This is a 33 year old male with history of CAD s/p PCI of unknown vessel who presented to the ER with chest pain that was relieved with nitroglycerin, admitting for observation Chest pain - possibly cardiac given history of CAD and relief with nitroglycerin. Other possibility potentially esophageal spasm, unlikely musculoskeletal. Chest X ray negative, d-dimer negative - first troponin negative, continue two more troponins. Check Lipid panel - Cardiology consult given negative stress test during last admission, consider cath? - resume home medications (aspirin, statin, coreg, plavix), nitro prn. Hold lisinopril in case cath needed - defer ECHO for now given normal ECHO 60-65% on last admission Transaminitis - possibly from statin vs cardiac ischemia. Check RUQ ultrasound given tenderness - check hepatitis panel given that he is an inmate and higher risk Neuropathy in hands and feet - given anemia will check B12 and folate levels. Pulses seem adequate so less likely circulatory problem, will check bilateral hand and foot X rays due to tenderness in heels and thenar eminence. Could be musculoskeletal such as plantar fascitis/carpal tunnel from sewing - check ANIA - check MRI cervical and lumbar spine due to back pain/urinary incontinence Hyperglycemia - fasting sugar 101, patient has history of borderline diabetes, will check A1C Hypertension - continue coreg, hold off lisinopril for now in case of cath Mood disorder - continue carbamazepine and zoloft Urine incontinence - check UA, MRI lumbar spine Disposition: admit for obs Code status: full code
[2019-04-18 13:32] VITALS: BMI 33.9
[2019-04-18] MEDS ORDERED: PROVENTIL INHALER 6.7 G (200 INHALATIONS) INH PRN (13:40)
[2019-04-18] MEDS ORDERED: Nitroglycerin 0.4 MG TAB (25 Tab Bottle) SL PRN (13:40)
[2019-04-18 14:04] LABS: Troponin I Less than 0.010 ng/mL (< 0.028)
--- NOTE | 2019-04-18 14:28 | RAD ---
XR Foot Lt 3 View STANDARD INDICATION: Bilateral heel pain and swelling COMPARISON: None. FINDINGS: Bones: There is mild enthesopathic change off the plantar calcaneus. No acute fracture or subluxation demonstrated. Joints: Joints spaces appear preserved. Lisfranc alignment: Lisfranc alignment appears within normal limits. Soft tissues: No soft tissue injury demonstrated. No radiographic foreign body demonstrated. IMPRESSION: No acute osseous abnormality.
--- NOTE | 2019-04-18 14:28 | RAD ---
XR Foot Rt 3 View STANDARD INDICATION: Heel pain and swelling COMPARISON: None. FINDINGS: Bones: No acute fracture identified. Joints: Joints spaces appear preserved. Lisfranc alignment: Lisfranc alignment appears within normal limits. Soft tissues: No soft tissue injury demonstrated. No radiographic foreign body demonstrated. IMPRESSION: No acute osseous abnormality.
--- NOTE | 2019-04-18 14:30 | RAD ---
XR Hand Lt 3 View STANDARD: 04/18/2019 1:00 PM CLINICAL INDICATION: Bilateral hand pain and swelling COMPARISON: None. FINDINGS: Bones: No acute osseous abnormality. Mild enthesopathic changes seen off the ulnar base of the long finger proximal phalanx. Joints: Joint spaces are preserved.. Soft Tissue: Soft tissues are normal appearing.. IMPRESSION: No acute osseous abnormality..
--- NOTE | 2019-04-18 14:31 | RAD ---
XR Hand Rt 3 View STANDARD: 04/18/2019 1:00 PM CLINICAL INDICATION: Hand swelling and pain COMPARISON: None. FINDINGS: Bones: No acute osseous abnormality. Joints: Joint spaces are preserved.. Soft Tissue: Soft tissues are normal appearing.. IMPRESSION: No acute osseous abnormality..
--- NOTE | 2019-04-18 15:21 | ULT ---
US Gallbladder RUQ History: Right upper quadrant pain Comparison: None. Findings: Real-time grayscale and color evaluation of the right upper quadrant of the abdomen was per formed. Visualized portion of the aorta, pancreas, and IVC are unremarkable. Diffuse increased hepatic echote xture. Hypoechoic focus measuring up to 3.8 cm near the gallbladder fossa. Liver measures 19.8 cm in length. Portal vein is patent with antegrade flow. Common bile duct is normal measuring 3 mm. Low-grade gallbladder sludge. Gallbladder wall thickness is normal. No pericholecystic fluid. Right kidney measures 10.5 x 5.1 x 5.4 cm without mass, hydronephrosis, or abnormal calcifications. Impression: 1. Diffuse hepatic steatosis and hepatomegaly with focal fatty sparing near the gallbladder fossa. 2. Small volume gallbladder sludge. No cholelithiasis or evidence of cholecystitis.
--- NOTE | 2019-04-18 16:04 | MRI ---
MR CERVICAL SPINE WITHOUT CONTRAST INDICATION: Neuropathy with hand pain; bilateral hand and leg numbness, pain and swelling. Denies inj ury or trauma. No surgery. TECHNIQUE: Multiplanar multisequence MR images were obtained of the cervical spine without contrast. COMPARISON: None FINDINGS: Motion artifact limits image detail. Posterior fossa: Within normal limits. Bone marrow signal intensity: Normal Spinal alignment: Normal. Craniocervical junction: Normal appearing. Prevertebral and perivertebral soft tissues: Visualized soft tissues appear within normal limits. Vertebral levels: C2-C3: No appreciable central canal or neuroforaminal narrowing. C3-4: There is a mild broad-based bulge at C3-C4. There is uncovertebral hypertrophy and facet joint degenerative change inducing mild bilateral neural foraminal narrowing, right greater than left. C4-5: Mild broad-based bulge and facet joint degenerative change. No appreciable central canal or ne ural foraminal narrowing demonstrated. C5-C6: Mild facet joint degenerative change. No appreciable central canal or neural foraminal narrowi ng. C6-C7:, No appreciable central canal or neuroforaminal narrowing. C7-T1: No appreciable central canal or neuroforaminal narrowing. IMPRESSION: 1. Mild spondylosis of the cervical spine with mild bilateral neural foraminal narrowing at C3-C4, ri ght greater than left.
--- NOTE | 2019-04-18 16:35 | MRI ---
MRI OF THE LUMBAR SPINE NONCONTRAST: 04/18/19 INDICATION: Bilateral upper and lower extremity numbness, pain and edema. FINDINGS: Conus medullaris is normal in morphology and terminates at the L1-2 level. There is no acute marrow e sammy. Mild reduction of T2 signal seen at the disc spaces of the L3-4, L4-5, and L5-S1 levels. There is degenerative disc space narrowing with end plate irregularity incidentally noted at the T11-12 lev el. There is multilevel mild bilateral degenerative facet hypertrophy. Congenital AP diameter narrowi ng of the vertebral canal of the mid to lower lumbar spine is present likely on the basis of shortene d pedicles. L5-S1: There is a right paracentral disc protrusion with encroachment upon the traversing right S1 ne rve root. No high grade central canal stenosis. Motion artifact does limit assessment of the neural f oramina with mild bilateral neural foraminal stenosis suggested. L4-5: There is a left foraminal disc protrusion with effacement of the exiting left L4 nerve root. Th ere is mild central canal stenosis. Mild to moderate left neural foraminal stenosis suggested, althou gh limited by motion distortion. Mild narrowing of the right neural foramen. L3-4: Slight disc bulge is present, concentric in distribution without significant mass effect upon the thecal sac or high grade neural foraminal stenosis. L2-3: No significant stenosis. L1-2: No significant stenosis. 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 Disc protrusions at the L5-S1 level and L4-5 level present, as discussed above. POS: [facility]
[2019-04-18 16:45] LABS: Hemoglobin A1c 5.5 % (4.0-6.0)
[2019-04-18 17:08] LABS: Cardiac Risk 5.1 (Less than 4.5); Troponin I Less than 0.010 ng/mL (< 0.028)
[2019-04-18 17:36] LABS: Folate (Folic Acid) 14.6 ng/mL (7.0-31.4)
[2019-04-18 18:41] LABS: Bacteria/HPF None Seen HPF (None Seen); Bilirubin Negative (Negative); Blood, Urine Trace (Negative); Clarity Clear (Clear); Glucose, Urine (Dipstick) Normal (Negative); Leukocyte Negative Leu/uL (Negative); Nitrite Negative (Negative); Protein, Urine (Dipstick) Negative (Neg-Trace); RBC/HPF 0-3 HPF (0-3); Squamous Epithelial 0-3 HPF (0-3); Urobilinogen Normal mg/dL (Less than 2)
[2019-04-18 18:47] LABS: Sperm/HPF None Seen HPF (None Seen)
[2019-04-18] MEDS: Carvedilol 6.25 MG TAB PO SCH (20:32)
[2019-04-18] MEDS ORDERED: carBAMazepine 200 MG TAB PO SCH (21:00)
--- NOTE | 2019-04-18 23:45 | CON ---
DATE OF CONSULTATION: HISTORY OF PRESENT ILLNESS: Ishmael Escamilla is a 33-year-old male, who in December 2018 underwent stent placement at [facility] in [place]. He was hospitalized here in January 2019 complaining of chest discomfort. Cardiac enzymes were unremarkable, and he underwent Cardiolite testing, which revealed no evidence of ischemia. There was no fixed defect. Ejection fraction was 47%. He states he continues to have episodes of chest discomfort, usually occurring at rest. He had another such episode last night, that lasted 15 to 20 minutes, relieved with 3 sublingual nitroglycerins. He was brought to the emergency room this morning for further evaluation. He has not had any chest discomfort since being admitted. PAST MEDICAL HISTORY: Coronary artery disease, hypertension, hyperlipidemia, anxiety, and depression. MEDICATIONS: 1. Albuterol 2 puffs p.r.n. 2. Aspirin 81 daily. 3. Plavix 75 mg daily. 4. Atorvastatin 80 mg daily. 5. Tegretol 200 mg at bedtime. 6. Carvedilol 6.25 b.i.d. 7. Lisinopril 40 daily. 8. Nitroglycerin p.r.n. 9. Sertraline 50 at bedtime. ALLERGIES: NONE. SOCIAL HISTORY: He is a former smoker. He has history of substance abuse with cocaine. He currently is incarcerated. PAST SURGICAL HISTORY: Pilonidal cyst removal and placement of stent in an unknown vessel in December 2018. FAMILY HISTORY: Father had coronary artery disease. REVIEW OF SYSTEMS: A 10-point review of systems is otherwise unremarkable. PHYSICAL EXAMINATION: VITAL SIGNS: Blood pressure 137/85 and pulse of 54. HEENT: PERRL. NECK: Supple. CHEST: Clear. CARDIAC: S1 and S2 normal without any S3, S4 or murmurs. ABDOMEN: Normal bowel sounds without tenderness. The abdomen is obese. EXTREMITIES: No clubbing, cyanosis or edema. NEUROLOGICAL: Grossly intact. SKIN: Warm and dry. MUSCULOSKELETAL: No chest wall palpable tenderness. LABORATORY DATA: I do not see an EKG on the chart. Cardiac enzymes are unremarkable. Hemoglobin 13.5, hematocrit 37.5, white count 5000, and platelets 189,000. D-dimer 0.34. Cholesterol 182, triglycerides 280, HDL 36, and LDL 90. Hemoglobin A1c 5.5. BNP 19.3. AST 35 and ALT 60. Sodium 140, potassium 4.3, chloride 106, carbon dioxide 24, BUN 12, and creatinine 0.88. IMPRESSION: 1. Atypical chest discomfort. This pain was somewhat pleuritic in nature. 2. History of stent placement in an unknown vessel in December 2018. 3. Hypertension. 4. Hyperlipidemia. 5. Former smoker. 6. Positive family history. 7. History of cocaine abuse. PLAN: This is the patient's second hospitalization since stent placement in December. Consideration will need to be given to cardiac catheterization even though there is no demonstrable evidence of ischemia or infarction. The patient will be further evaluated by Dr. Jackson in the morning. Job ID: [id number] [facility]
[2019-04-19] MEDS ORDERED: Lidocaine 1% (PF) 30 ML VIAL ONE (06:33)
--- NOTE | 2019-04-19 07:49 | RAD ---
Cervical spine 3 views: 04/19/2019 COMPARISON: None HISTORY: Evaluate for instability FINDINGS: The neutral lateral examination demonstrates normal vertebral body height and alignment. Th e C7-T1 level could not be visualized on neutral imaging. With flexion, no anterolisthesis or retrolisthesis is seen. The C6-7 and C7-T1 levels are not visualized on flexion imaging. With extensi on there is no anterolisthesis or retrolisthesis. The C6-7 and C7-T1 levels cannot be visualized on extension. IMPRESSION: Grossly unremarkable limited flexion and extension imaging as detailed above.
[2019-04-19] MEDS ORDERED: Midazolam HCl 2 mg/2 ml Vial ONE (07:58)
[2019-04-19] MEDS ORDERED: Fentanyl 100 MCG/2 ML VIAL ONE (07:58)
[2019-04-19] MEDS ORDERED: Nitroglycerin 0.4 MG TAB (25 Tab Bottle) SL PRN (08:15)
[2019-04-19] MEDS ORDERED: Sodium Chloride 0.9% 1,000 ML IV SCH (08:15)
[2019-04-19] MEDS ORDERED: Acetaminophen/Codeine 30-300mg Tablet PO PRN ×2 (08:15)
[2019-04-19] MEDS ORDERED: Sodium Chloride 0.9% 200 ML IV PRN (08:15)
[2019-04-19] MEDS ORDERED: Clopidogrel Bisulfate 75 MG TAB PO SCH (09:00)
[2019-04-19] MEDS ORDERED: Aspirin 81 mg Enteric Coated Tablet PO SCH (09:00)
[2019-04-19] MEDS ORDERED: Atorvastatin Calcium 40 MG TAB PO SCH (09:00)
[2019-04-19] MEDS: Carvedilol 6.25 MG TAB PO SCH (09:38)
[2019-04-19 10:31] LABS: #Eosinphils 0.1 thou/uL (0.0-0.7); #Lymphocytes 1.6 thou/uL (1.20-3.40); #Monocytes 0.4 thou/uL (0.11-0.59); #Neutrophils 3.5 thou/uL (1.40-6.50); %Basophils 0.5 % (0.0-1.0); %Eosinophils 1.5 % (0.0-10.0); %Lymphocytes 28.7 % (21.0-51.0); %Monocytes 7.7 % (0.0-10.0); %Neutrophils 61.5 % (42.0-75.0); Hemoglobin 13.5 g/dL (14.0-18.0); Mean Corpuscular Hemoglobin 31.2 pg (27.0-31.0); Mean Corpuscular Volume 86.8 fL (78.0-98.0); Mean Platelet Volume 7.7 fL (7.4-10.4); Platelet Count 193 thou/uL (130-400); RBC Distribution Width 11.8 % (11.5-14.5); Red Blood Cell (RBC) Count 4.32 mill/uL (4.70-6.10); White Blood Cell (WBC) Count 5.7 thou/uL (4.8-10.8)
[2019-04-19 10:51] LABS: ALT (SGPT) 58 U/L (8-55); AST (SGOT) 31 U/L (5-34); Albumin 4.6 g/dL (3.5-5.0); Alkaline Phosphatase 73 U/L (40-150); Bilirubin, Direct 0.2 mg/dL (0.1-0.3); Bilirubin, Total 0.6 mg/dL (0.2-1.2)
[2019-04-19 11:18] LABS: HBCM Index 0.05 S/CO (0-0.79); HBSAg Index 0.17 S/CO (0-0.99); Hep A IgM AB Non-Reactive (NonReactive); Hep A IgM S/CO 0.06 S/CO (0-0.79); Hep B Surf Ag Non-Reactive S/CO (NonReactive); Hep C IgG Ab Non-Reactive (NonReactive); Hep C Index 0.05 S/CO (0-0.79); Hepatitis B Core IgM Abs Non-Reactive (NonReactive)
[2019-04-19] MEDS ORDERED: Diclofenac 1% 100 GM GEL TP PRN (12:09)
[2019-04-19 12:24] VITALS: TEMP 98.1
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
[2019-04-19] MEDS ORDERED: Acetaminophen 325 MG TAB PO SCH (14:15)
[2019-04-19] MEDS ORDERED: Capsaicin 0.025% Cream 60 gm Tube TOP PRN (15:00)
[2019-04-19 15:36] VITALS: BP 143/80
--- NOTE | 2019-04-20 07:28 | DIS ---
DATE OF ADMISSION: 04/18/2019 DATE OF DISCHARGE: 04/19/2019 DISCHARGE DIAGNOSES: 1. Chest pain-possibly secondary to musculoskeletal versus neuropathic etiology. 2. Fatty liver/elevated liver function test. 3. Cervical spondylosis with C3 to C4 foraminal narrowing, right greater than left. 4. Degenerative disk disease in the lumbar spine with L4 and S1 nerve impingement. Chronic conditions: 1. Hyperglycemia. 2. Hypertension. 3. Mood disorder. 4. Urinary incontinence. CONSULTS: Cardiology and Neurosurgery. PROCEDURES: Cardiac catheterization, which showed patent stent. Final cardiac cath report is still pending. LABORATORY DATA: Pertinent labs included a hemoglobin and hematocrit of 13.5/ 37.5, white blood cell count 5.0, and platelet count 189. Liver function tests: AST was 35 on April 18, and on April 19, decreased to 31; ALT was 60 on April 18 and decreased to 58 on April 19. -CK levels were 203 on April 18 and decreased to 179 on April 19. Troponin I was less than 0.010 x3. -Lipid panel: Showed an elevated triglyceride level of 280, LDL was 90, HDL 36 Anemia workup: vitamin B12 levels were 340, folate 14.6 -hemoglobin A1C was 5.5. -Hepatitis panel was normal and a UA which showed 46 white blood cells and trace blood. DIAGNOSTIC IMAGIN/18: Chest x-ray: Shows no acute cardiopulmonary abnormality. 04/18 Abdominal ultrasound: Shows diffuse hepatic steatosis and hepatomegaly with focal fatty sparing of the gallbladder fossa. Small volume gallbladder sludge. No cholelithiasis or evidence of cholecystitis. 04/18 bilateral foot Xray: Shows no acute osseous abnormality. 04/18 bilateral hand X rays: no acute osseous abnormality. 04/18 Lumbar spine MRI: showed degenerative disk space narrowing with end-plate irregularity incidentally noted at T11-12 level. There is multilevel mild bilateral degenerative facet hypertrophy. There is a right paracentral disc protrusion with encroachment upon the traversing right S1 nerve root. No high grade central canal stenosis. There is a left foraminal disc protrusion with effacement of the exiting left L4 nerve root. There is mild central canal stenosis. [id number] left neuroforaminal stenosis suggested. At L1-L4 there is a slight disk bulge present, but without significant mass effect upon the thecal sac were high-grade neuroforaminal stenosis. 04/18 MRI of cervical spine: Shows mild spondylosis of the cervical spine with mild bilateral neuroforaminal narrowing at C3-C4, right greater than left. 04/19 Cervical spine X ray: Cervical spine x-ray showed grossly unremarkable limited flexion and extension imaging. HOSPITAL COURSE: Chest pain: The patient is a 33-year-old male with a history of CAD status post PCI in December 2018, hypertension, hyperlipidemia, who presented on April 18 with chief complaint of chest pain while the patient was writing at his desk. The pain was a stabbing pain on his left side and was associated with shortness of breath and lightheadedness. His pain was relieved with 2 nitroglycerin. For these reason, the patient was admitted for observation. EKG showed sinus bradycardia and sinus arrhythmia, possible old anterior infarct. Troponin I were negative x3. Cardiology was consulted given the fact that during his last admission in January, the patient had a normal stress test. He therefore underwent a cardiac catheterization on April 19, which preliminarily showed that his stent was patent. I am unable to access the final report, therefore, these records should be requested at a later time. The patient was seen by Cardiology on April 19 and felt that his chest pain was cleared from the Cardiology perspective. He was resumed on his home medications of aspirin, Plavix, atorvastatin, and Coreg. His lisinopril will be restarted tomorrow. Alternatively his chest pain could be secondary to degenerative disc disease in the spine, for which topical capsaicin and voltaren gel was prescribed. Cervical spondylosis with C3 to C4 foraminal narrowing right greater than left/ Degenerative disk disease in the lumbar spine with L4 and S1 nerve impingement: The patient was complaining of numbness in his hand and his feet as well as urinary incontinence. For these reason, MRI of his cervical and lumbar spine was ordered with findings mentioned above. Neurosurgery was consulted. They ordered a cervical spine x-ray, which was unremarkable. They recommended that the patient get conservative therapy with iliotibial band stretches, do plank exercises, and activities as tolerated. The patient was seen by Physical Therapy and was given a handout of exercises that he could do for his nerve impingement. It was recommended that if the patient continues to have persistent numbness and worsening symptoms that the patient can follow up with Neurosurgery, Dr. Villarreal in 6 to 12 weeks. If he does have worsening weakness, however, difficulty walking or saddle anesthesia, then the patient can come back to ER for further evaluation. Hyperglycemia: The patient had a fasting sugar of 101 in the hospital. Hemoglobin A1c was checked, which was 5.5. The patient can follow up with his PCP as an outpatient. Hypertension: The patient was on Coreg and lisinopril. Lisinopril was held this morning due to his cardiac cath. The patient's blood pressure was 143/80 at the time of discharge. He can resume his lisinopril tomorrow morning. Mood disorder: Continue carbamazepine and Zoloft. Urine incontinence: A UA was checked, which was unremarkable for an infection. MRI of lumbar spine was done, which is noted above. Neurosurgery was consulted and did not think that the urinary incontinence represented a surgical emergency and was unlikely secondary to his degenerative disk disease. Consider followup with Urology as an outpatient. Fatty liver/Transaminitis: His ultrasound showed an enlarged liver and the patient was encouraged to lose weight. Hepatitis panel was ordered and it was negative. Consider followup ultrasound as an outpatient. DISCHARGE MEDICATIONS: 1. Acetaminophen 650 mg p.o. b.i.d. 2. Albuterol sulfate 2 puffs inhaled p.r.n. 3. Aspirin 81 mg p.o. daily. 4. Atorvastatin 80 mg p.o. daily. 5. Coreg 6.25 mg p.o. b.i.d. 6. Clopidogrel 75 mg p.o. daily. 7. Lisinopril 40 mg p.o. q.h.s. 8. Zoloft 200 mg p.o. q.h.s. 9. Nitroglycerin 0.4 mg p.o. sublingual q.5 minutes p.r.n. for chest pain. 10. Capsaicin, this is a new prescription that was given for his musculoskeletal pain and he can apply a thin film 3 times a day as needed. 11. Diclofenac gel can apply to small zone twice daily as needed to areas of pain. CONDITION ON DISCHARGE: VITAL SIGNS: Stable. His blood pressure 143/80, heart rate 55, temperature 98.1, respiratory rate 16, O2 saturation 97% on room air. ACTIVITY: As tolerated. The patient was advised to keep a diary of activities that aggravate his neuropathy in his hand and his feet and to avoid those activities. He should take caution with lifting any heavyweight. FOLLOWUP: PCP, intermediate physician within a week. Consider Neurosurgery followup for nerve conduction studies or an EMG if neuropathy continues to persist. DIET: Heart-healthy diet. DISPOSITION: Back to the custodial facility. Job ID: [id number] [facility]
[2019-04-20 16:39] LABS: ANA Symphony (Qualitative) Negative (Negative); ANA Symphony (Quantitative) 0.1 Ratio (< 0.7 Negative); dsDNA IgG Antibody Less than 0.5 IU/mL (<10 Negative)
--- NOTE | 2019-04-21 12:01 | EKG ---
Test Reason : Blood Pressure : / mmHG Vent. Rate : 053 BPM Atrial Rate : 053 BPM P-R Int : 142 ms QRS Dur : 096 ms QT Int : 442 ms P-R-T Axes : 000 104 066 degrees QTc Int : 414 ms Sinus bradycardia with sinus arrhythmia Rightward axis Possible Anterior infarct , age undetermined Abnormal ECG Confirmed by RANI MARIE, NUSRAT ([id number]), pictures editor NANY SINGER ([id number]) on 04/21/2019 12:00:47 PM Referred By: Confirmed By:NUSRAT SARAVIA MD
== END 2019-04-19 15:02 ==
LOC: EEVIPCON 08:27 → ERS 08:27 → 2SW 13:16
PROVIDERS: ADMIT Internal Medicine; ATTEND Internal Medicine
PROC: 4A023N7 Measurement of Cardiac Sampling and Pressure, Left Heart, Percutaneous Approach (ICD-10-PCS; principal; 2019-04-19)
DX: R07.89 Other chest pain (principal); K76.0 Fatty (change of) liver, not elsewhere classified; M48.02 Spinal stenosis, cervical region; M47.812 Spondylosis without myelopathy or radiculopathy, cervical region; M51.36 Other intervertebral disc degeneration, lumbar region; I10 Essential (primary) hypertension; I25.10 Atherosclerotic heart disease of native coronary artery without angina pectoris; R73.9 Hyperglycemia, unspecified; F39 Unspecified mood [affective] disorder; R32 Unspecified urinary incontinence; F41.8 Other specified anxiety disorders; F32.9 Major depressive disorder, single episode, unspecified; Z79.82 Long term (current) use of aspirin; Z79.899 Other long term (current) drug therapy; Z87.891 Personal history of nicotine dependence; Z95.5 Presence of coronary angioplasty implant and graft
CPT/HCPCS: 36415; 71045; 72040; 72141; 72148; 76705; 76942; 80053; 80061; 80074; 80076; 81003; 81015; 82550; 82607; 82746; 83036; 83690; 83880; 84484; 85025; 85379; 86038; 86225; 93005; 93458; 96360; 96361; 99152; C1769; G0378; J1644; J2001; J2250; J3010

== ENCOUNTER 2019-06-18 10:51 | Emergency (ER) | payer OTHER ==
[2019-06-18] MEDS ORDERED: Iopamidol-370 76% 500 ML 1 ML ONE (11:11)
--- NOTE | 2019-06-18 11:20 | RAD ---
XR Chest 1 View Portable HISTORY: Chest pain COMPARISON: None FINDINGS: The heart size is normal. The lungs are well expanded without focal areas of consolidation, pneumothorax or pleural effusions. IMPRESSION: No radiographic evidence of acute cardiopulmonary process.
[2019-06-18] MEDS ORDERED: Nitroglycerin 2% Ointment 1 INCH/1 GM Packet ONE (11:29)
[2019-06-18 14:09] LABS: #Eosinphils 0.1 thou/uL (0.0-0.7); #Lymphocytes 1.7 thou/uL (1.20-3.40); #Monocytes 0.5 thou/uL (0.11-0.59); #Neutrophils 3.3 thou/uL (1.40-6.50); %Basophils 0.5 % (0.0-1.0); %Eosinophils 1.9 % (0.0-10.0); %Lymphocytes 30.5 % (21.0-51.0); %Monocytes 8.8 % (0.0-10.0); %Neutrophils 58.3 % (42.0-75.0); Hemoglobin 12.7 g/dL (14.0-18.0); Mean Corpuscular HGB CONC 34.6 g/dL (32.0-36.0); Mean Corpuscular Hemoglobin 30.5 pg (27.0-31.0); Mean Corpuscular Volume 88.2 fL (78.0-98.0); Mean Platelet Volume 7.3 fL (7.4-10.4); Platelet Count 215 thou/uL (130-400); RBC Distribution Width 11.7 % (11.5-14.5); Red Blood Cell (RBC) Count 4.16 mill/uL (4.70-6.10); White Blood Cell (WBC) Count 5.7 thou/uL (4.8-10.8)
[2019-06-18 14:32] LABS: ALT (SGPT) 49 U/L (8-55); AST (SGOT) 31 U/L (5-34); Albumin 4.6 g/dL (3.5-5.0); Alkaline Phosphatase 76 U/L (40-110); Anion Gap 14 mmol/L (10-20); BUN (Urea Nitrogen) 14 mg/dL (8.9-20.6); Bilirubin, Total 0.4 mg/dL (0.2-1.2); Calc. Creatinine Clearance 0 mL/min (70-130); Carbon Dioxide 26 mmol/L (22-29); Chloride 106 mmol/L (98-107); Estimated GFR-MDRD Greater than 90; Glucose 83 mg/dL (70-105); Potassium 4.6 mmol/L (3.5-5.1); Protein, Total 6.6 g/dL (6.0-8.3); Sodium 141 mmol/L (136-145)
--- NOTE | 2019-06-18 18:22 | CT ---
CT angiogram thorax with contrast CT angiogram abdomen with contrast: DATE: 06/18/2019 HISTORY: 34-year-old male with acute chest pain radiating to the back. Rule out aortic dissection. TECHNIQUE: IV injection of iodinated contrast. Arterial bolus chasing technique. Scan acquisition from top of aortic arch to iliac crests. 3-D MIP reconstructions. FINDINGS: Diffusely low hepatic attenuation representing fatty liver with areas of focal fatty sparing. No port al vein thrombosis. Within the limitations of an [id number] scan, no major pathology identified involving kidneys, adrenals, pancreas, spleen, or the visualized portions of colon and sma ll intestine. No retroperitoneal lymphadenopathy. No free fluid identified. Thoracic and abdominal aorta are normal in caliber, with no dissection, aneurysm, or rupture. No comp ression fracture of thoracic spine or lumbar spine. Lungs are essentially clear. No pleural effusion or pneumothorax. Trachea and major bronchi are paten t and clear. No mediastinal or hilar lymphadenopathy. No central pulmonary thromboembolism in pulmonary trunk, left or right main pulmonary arteries, or their proximal branches. Peripheral branch es are difficult to evaluate for PE because the IV contrast bolus timing was for the aorta rather than pulmonary arteries. IMPRESSION: 1) essentially normal aorta. 2) No acute findings in the abdominal cavity. 3) hepatic steatosis.
== END 2019-06-18 21:45 | disposition short-term general hospital (02) ==
LOC: EDBD → ERS 10:51 → MERGE 10:51 → ERS 21:45
DX: R07.9 Chest pain, unspecified (principal); I10 Essential (primary) hypertension; R73.03 Prediabetes; E78.00 Pure hypercholesterolemia, unspecified; F41.9 Anxiety disorder, unspecified; F32.9 Major depressive disorder, single episode, unspecified; Z87.891 Personal history of nicotine dependence; Z79.82 Long term (current) use of aspirin; Z79.899 Other long term (current) drug therapy; Z79.891 Long term (current) use of opiate analgesic
CPT/HCPCS: 36415; 71045; 71275; 72191; 74175; 80053; 84484; 85025; 93005; 96360; 96361; Q9967